=== PATIENT | female | born 1985 | race Caucasian/White ===

== ENCOUNTER 2017-10-02 11:29 | Emergency (ER) | payer BC, MEDICAID ==
[2017-10-02 12:08] VITALS: BP 140/96
--- NOTE | 2017-10-02 12:31 | UC ---
FLU HPI - HPI Summary HPI Summary: Pt presents with a 5 day history of sinus congestion/pain/pressure, b/l earache , generalized body aches, and dry cough. She has been taking tylenol OTC and an OTC cold and flu medication with mild relief. She has felt warm, but denies fever. Denies SOB, chest pain, abdominal pain, N/V/d/C - History of Current Complaint Chief Complaint: UCRespiratory Stated Complaint: RESP COMPLAINT Time Seen by Provider: 10/02/17 12:30 Hx Obtained From: Patient Hx Last Menstrual Period: mirena ?: No Onset/Duration: Gradual Onset Severity Currently: Mild Severity Initially: Moderate Pain Intensity: 5 Pain Scale Used: 0-10 Numeric - Allergy/Home Medications Allergies/Adverse Reactions: Allergies Allergy/AdvReac Type Severity Reaction Status Date / Time Iohexol [From Omnipaque] Allergy Shortness Verified 10/02/17 12:08 of Breath Magnesium Sulfate AdvReac Severe Nausea And Verified 10/02/17 12:08 Vomiting Home Medications: Home Medications Lisinopril/HCTZ 07/29.5(NF) [Zestoretic 07/29.5(NF)] 1 tab PO DAILY 10/02/17 [ History Confirmed 10/02/17] PMH/Surg Hx/FS Hx/Imm Hx Previously Healthy: Yes Cardiovascular History: Hypertension - Surgical History Surgical History: Yes Surgery Procedure, Year, and Place: [address] [place] [address], [facility] DILATION AND CURETTAGE, [id number] COLONOSCOPY,Laminectomy - Family History Known Family History: Negative: Cardiac Disease, Hypertension, Diabetes Family History: reviewed and noncontributory - Social History Occupation: Employed Full-time Lives: With Family Alcohol Use: Daily Alcohol Amount: 1-6 beers Substance Use Type: None Smoking Status (MU): Former Smoker Type: Cigarettes Review of Systems Constitutional: Negative Skin: Negative Eyes: Negative ENT: Ear Ache, Nasal Discharge, Sinus Congestion, Sinus Pain/Tenderness Respiratory: Cough Cardiovascular: Negative Gastrointestinal: Negative Neurovascular: Negative Musculoskeletal: Negative Neurological: Negative Psychological: Negative All Other Systems Reviewed And Are Negative: Yes Physical Exam Triage Information Reviewed: Yes Appearance: Well-Appearing, Well-Nourished Vital Signs: Initial Vital Signs Temp 97.8 F 10/02/17 12:04 Pulse 101 10/02/17 12:04 Resp 16 10/02/17 12:04 BP 140/96 10/02/17 12:04 Pulse Ox 100 10/02/17 12:04 Vital Signs Reviewed: Yes Eyes: Positive: Conjunctiva Clear. Negative: Conjunctiva Inflamed, Discharge ENT: Positive: Hearing grossly normal, Pharynx normal, Nasal congestion, Nasal drainage, TMs normal, Sinus tenderness, Uvula midline. Negative: Pharyngeal erythema, TM bulging, TM dull, TM red, Tonsillar swelling, Tonsillar exudate Neck: Positive: Supple, Nontender, No Lymphadenopathy Respiratory: Positive: Chest non-tender, Lungs clear, Normal breath sounds, No respiratory distress, No accessory muscle use Cardiovascular: Positive: RRR, No Murmur, Pulses Normal Abdomen Description: Positive: Nontender, No Organomegaly, Soft. Negative: Distended, Guarding, Hepatomegaly, Splenomegaly Bowel Sounds: Positive: Present Neurological: Positive: Alert Psychological: Positive: Age Appropriate Behavior Skin: Negative: rashes Flu Course/Dx - Course Course Of Treatment: Influenza swab negative. Sinusitis - Amoxicillin for 10 days - Differential Dx/Diagnosis Differential Diagnosis/HQI/PQRI: Other - sinusitis. Influenza. URI. Bronchitis. PNA Provider Diagnoses: Sinusitis Discharge - Discharge Plan Condition: Stable Disposition: HOME Prescriptions: Amoxicillin PO (*) [Amoxicillin 500 MG CAP*] 500 mg PO Q12H #20 cap Fluconazole 100 MG TAB* [Diflucan 100 MG TAB*] 100 mg PO DAILY #1 tab Patient Education Materials: Sinusitis (ED) Referrals: Duc OLSON,Serge Chow [Primary Care Provider] - Additional Instructions: If you develop a fever, SOB, chest pain, new or worsening symptoms - please call your PCP or go to the ED. Your blood pressure was high at todays visit. Please see your primary provider within 4 weeks for recheck and re-evaluation.
== END 2017-10-02 13:04 | disposition home or self-care (01) ==
LOC: UCEAST 11:29
DX: J32.9 Chronic sinusitis, unspecified (principal)
CPT/HCPCS: 87502; 99212; G0463

== ENCOUNTER 2018-04-18 13:24 | Emergency (ER) | payer BC, MEDICAID ==
[2018-04-18] MEDS ORDERED: Promethazine TAB* 25 MG PO ONE (13:43)
[2018-04-18 14:07] VITALS: BP 147/75
--- NOTE | 2018-04-18 17:30 | ED ---
Tong Turpin Tenzin, scribed for Juan Shore MD on 04/18/18 at 1344 . Head Injury - HPI Summary HPI Summary: Pt is a 32 years old female presenting to the ED complaining of head and back pain after an head injury two days ago at 1000. Per triage, pt rates the pain at 7/10 in severity. Pt notes that she tipped off of a boat chair and hit the back of her head on the corner of the boat. Pt reports that she had some vision changes, dizziness and nauseous since the onset and seems to be getting worse. Denies fever, V/D. Pt notes that she feels as right eye ball will pop out of my face. She drove here and she notes that she felt like she was drunk driving. Pt reports that she took some ibuprofen for the pain without much help. No aggravating factors were noted. - History Of Current Complaint Chief Complaint: EDHeadInjury Stated Complaint: HEAD INJURY,DIZZINESS,NAUSEA Time Seen by Provider: 04/18/18 13:35 Hx Obtained From: Patient Hx Last Menstrual Period: mirena Onset/Duration: Started Days Ago - 2 days ago Severity Currently: Moderate Pain Intensity: 7 Pain Scale Used: 0-10 Numeric Associated Signs And Symptoms: Negative - NEGATIVE: Fever, V/D, Nausea, Headache - Allergies/Home Medications Allergies/Adverse Reactions: Allergies Allergy/AdvReac Type Severity Reaction Status Date / Time iohexol Allergy Shortness Verified 04/18/18 13:32 of Breath magnesium sulfate Allergy Nausea And Verified 04/18/18 13:32 Vomiting PMH/Surg Hx/FS Hx/Imm Hx Endocrine/Hematology History: Reports: Hx Diabetes - gestational in past Denies: Hx Thyroid Disease Cardiovascular History: Reports: Hx Hypertension Denies: Hx Pacemaker/ICD Respiratory History: Reports: Hx Asthma Denies: Hx Chronic Obstructive Pulmonary Disease (COPD) GI History: Denies: Hx Ulcer History: Denies: Hx Dialysis, Hx Renal Disease Sensory History: Denies: Hx Contacts or Glasses, Hx Hearing Aid Opthamlomology History: Denies: Hx Contacts or Glasses Psychiatric History: Denies: Hx Panic Disorder - Cancer History Hx Chemotherapy: No Hx Radiation Therapy: No - Surgical History Surgery Procedure, Year, and Place: 2000 [facility] DILATION AND CURETTAGE, [id number] COLONOSCOPY,Laminectomy Hx Anesthesia Reactions: Yes - DURING LABOR, PROBLEMS WITH EPIDURAL-DROP IN BP, HR Infectious Disease History: No Infectious Disease History: Denies: Hx Hepatitis, Hx Human Immunodeficiency Virus (HIV), History Other Infectious Disease, Traveled Outside the [place] in Last 30 Days - Family History Known Family History: Negative: Cardiac Disease, Hypertension, Diabetes Family History: reviewed and noncontributory - Social History Alcohol Use: Daily Alcohol Amount: 1-6 beers Substance Use Type: Reports: None Smoking Status (MU): Former Smoker Type: Cigarettes Review of Systems Negative: Fever Positive: Other - NEGATIVE: right eye "feels as if it is going to pop out of her face". Positive: Nausea. Negative: Vomiting, Diarrhea Positive: Other - Back pain. Neurological: Other - POSITIVE DIZZINESS Positive: Headache All Other Systems Reviewed And Are Negative: Yes Physical Exam - Summary Physical Exam Summary: Appearance: Well appearing, no pain distress Skin: warm, dry, reflects adequate perfusion Head/face: normal Eyes: EOMI, MARILEE, no Hematoma, diaz or raccoon eyes ENT: normal Neck: supple, non-tender Respiratory: CTA, breath sounds present Cardiovascular: RRR, pulses symmetrical Abdomen: non-tender, soft Bowel Sounds: present Musculoskeletal: normal, strength/ROM intact, Occiput tenderness but no redness or swelling. Neuro: normal, sensory motor intact, A&Ox3 Triage Information Reviewed: Yes Vital Signs On Initial Exam: Initial Vitals Temp Pulse Resp BP Pulse Ox 97.9 F 91 15 144/87 98 04/18/18 13:30 04/18/18 13:30 04/18/18 13:30 04/18/18 13:30 04/18/18 13:30 Vital Signs Reviewed: Yes Diagnostics - Vital Signs Vital Signs Temp Pulse Resp BP Pulse Ox 04/18/18 13:37 83 97 04/18/18 13:35 79 154/109 97 04/18/18 13:30 97.9 F 91 15 144/87 98 - Laboratory Lab Statement: Any lab studies that have been ordered have been reviewed, and results considered in the medical decision making process. Head Injury Course/Dx Course Of Treatment: Patient with occipital injury several days ago with residual symptoms that are likely concussive. Appears comfortable at present. Some muscular tenderness in the area of the insertion of the trapezius on the right. Full range of motion the neck without pain. Treat symptomatically for concussion. Follow up primary care physician. Illogically intact. - Diagnoses Differential Diagnosis/HQI/PQRI: Cervical Sprain, Concussion Without LOC, Intracranial Bleed Provider Diagnoses: Concussion Discharge - Sign-Out/Discharge Documenting (check all that apply): Discharge/Admit/Transfer - Discharge - Discharge Plan Condition: Improved Disposition: HOME Prescriptions: Cyclobenzaprine (NF) [Cyclobenzaprine 5 MG (NF)] 5 mg PO BEDTIME PRN #5 tab PRN Reason: neck pain, muscle aches Promethazine TAB* [Phenergan Tab*] 25 mg PO Q6H PRN #20 tab PRN Reason: headache, nausea Patient Education Materials: Concussion (ED) Referrals: Duc OLSON,Serge Chow [Primary Care Provider] - Additional Instructions: Return with severe/persistent headache, nausea, worsening, difficulty with balance, new symptoms or other concerns. Avoid physical activities for 1 week following the last day of symptoms. - Billing Disposition and Condition Condition: IMPROVED Disposition: Home The documentation as recorded by the Tong lee Tenzin accurately reflects the service I personally performed and the decisions made by , Juan Shore MD.
== END 2018-04-18 14:06 | disposition home or self-care (01) ==
LOC: ED 13:24
DX: S06.0X9A Concussion with loss of consciousness of unspecified duration, initial encounter (principal); R11.0 Nausea; M54.9 Dorsalgia, unspecified; Z87.891 Personal history of nicotine dependence; R51 Headache; X58.XXXA Exposure to other specified factors, initial encounter; Y92.9 Unspecified place or not applicable
CPT/HCPCS: 99282

== ENCOUNTER 2018-06-08 09:29 | Emergency (ER) | payer BC, MEDICAID ==
[2018-06-08 09:45] VITALS: BP 150/105
--- NOTE | 2018-06-08 10:00 | UC ---
Head Injury HPI - HPI Summary HPI Summary: A 32 y/o F presents to [facility] with c/o approximately weekly severe frontal DOTSON behind her R eye onset over the past two months. She states waking up with the pain. Two months ago, the patient fell and hit her head, she went to ED, dx: concussion. Associated sx: severe nausea. She was at work today, and they sent her home because she appeared ill. Her PCP could not fit her in today. Pt sees Dr. Wallace for chronic neck pain. She has UE numbness but it hasnt worsened since the concussion. PMHx: HTN. Has not taken her HTN meds today. - History Of Current Complaint Chief Complaint: UCHeadInjury Stated Complaint: HEADACHE NAUSEA Time Seen by Provider: 06/08/18 09:47 Hx Obtained From: Patient Hx Last Menstrual Period: iud Onset/Duration: Lasting Weeks - intermittent weekly episodes for past two months , Still Present Severity Currently: Moderate Severity Initially: Moderate Pain Intensity: 7 Pain Scale Used: 0-10 Numeric Associated Signs And Symptoms: Positive: Nausea - severe, Other - neg: UE numbness other than baseline - Allergies/Home Medications Allergies/Adverse Reactions: Allergies Allergy/AdvReac Type Severity Reaction Status Date / Time iohexol Allergy Shortness Verified 06/08/18 09:45 of Breath magnesium sulfate Allergy Nausea And Verified 06/08/18 09:45 Vomiting PMH/Surg Hx/FS Hx/Imm Hx Previously Healthy: No - neck pain Cardiovascular History: Hypertension - Surgical History Surgical History: Yes Surgery Procedure, Year, and Place: [facility] DILATION AND CURETTAGE, [id number] COLONOSCOPY,Laminectomy - Family History Known Family History: Negative: Cardiac Disease, Hypertension, Diabetes - Social History Occupation: Employed Part-time Lives: With Family Alcohol Use: Occasionally Alcohol Amount: 1-6 beers Substance Use Type: None Smoking Status (MU): Former Smoker Type: Cigarettes Review of Systems Gastrointestinal: Nausea - severe Neurological: Headache All Other Systems Reviewed And Are Negative: Yes Physical Exam - Summary Physical Exam Summary: VITAL SIGNS: Reviewed. GENERAL: Patient is a well-developed and nourished FEMALE who is lying comfortable in the stretcher. Patient is not in any acute respiratory distress. HEAD AND FACE: Normocephalic EYES: PERRLA, EOMI x 2. EARS: Hearing grossly intact. MOUTH: Oropharynx within normal limits. NECK: Supple, trachea is midline, no adenopathy, no JVD, no carotid bruit. CHEST: Symmetric, no tenderness at palpation LUNGS: Clear to auscultation bilaterally. No wheezing or crackles. CVS: Regular rate and rhythm, S1 and S2 present, no murmurs or gallops appreciated. ABDOMEN: Soft, non-tender. Bowel sounds are normal. No abdominal abnormal pulsations. EXTREMITIES: Full ROM in all major joints, no edema, no cyanosis or clubbing. NEURO: Alert and oriented x 3. No acute neurological deficits. Speech is normal and follows commands. SKIN: Dry and warm Triage Information Reviewed: Yes Vital Signs: Initial Vital Signs Temp 98 F 06/08/18 09:39 Pulse 76 06/08/18 09:39 Resp 16 06/08/18 09:39 BP 150/105 06/08/18 09:39 Pulse Ox 100 06/08/18 09:39 Vital Signs Reviewed: Yes Head Injury Course/Dx - Course Course Of Treatment: The patient was found to have increased BP in UC. The patient will follow up with PCP for better control of BP. Patient is a 32-year- old female presents to the urgent care with chief complaint of having a headache of similar nausea and vomiting. The patient had a history of head concussion but also has history of hypertension. Blood pressure is 150/105 therefore believe that the symptoms are secondary to the uncontrolled blood pressure. Patient was taking lisinopril/hydrochlorothiazide 20/12.5 however the primary care physician decreased to 10/12.5. Therefore I recommended to increase the blood pressure medications 20/12.5. Patient and does not want to return to see her PCP, therefore she will be referred [facility] [place] [facility] follow[place] in the next couple days. Patient has a normal neurological exam, she is ambulating with normal gait without any ataxia therefore do not see the need for head CT. However the symptoms continue she should return to the urgent care or go to the emergency room for possible head CT. Patient is hemolyticus stable alert and oriented 3. I discussed all the findings and test results with the patient. Patient was instructed to return to the urgent care or go to ER immediately if any of the symptoms return or worsens. Plan of care was discussed with the patient, and patient understands and agrees. All questions were answered to patient satisfaction. There were no further complaints or concerns. Pt is hemodynamically stable, alert and oriented x3. - Differential Dx/Diagnosis Provider Diagnoses: Uncontrol HTN Discharge - Sign-Out/Discharge Documenting (check all that apply): Patient Departure - DC All imaging exams completed and their final reports reviewed: No Studies - Discharge Plan Condition: Stable Disposition: HOME Prescriptions: Lisinopril/HCTZ 20/12.5(NF) [Zestoretic 20/12.5(NF)] 1 tab PO DAILY #30 tab Patient Education Materials: Hypertension (ED) Forms: *Work Release Referrals: [facility] [Outside] Duc OLSON,Serge Chow [Primary Care Provider] - Additional Instructions: FOLLOW UP WITH YOUR PRIMARY CARE PROVIDER WITHIN ONE WEEK FOR HIGH BLOOD PRESSURE NOTED TODAY. - Billing Disposition and Condition Condition: STABLE Disposition: Home - Attestation Statements Document Initiated by Scribe: Yes Documenting Scribe: Rayshawn Metz Provider For Whom Scribe is Documenting (Include Credential): Lucien Goins MD Scribe Attestation: I, Rayshawn Metz, scribed for Lucien Goins MD on 06/08/18 at 1042. Scribe Documentation Reviewed: Yes Provider Attestation: The documentation as recorded by the Rayshawn lee accurately reflects the service I personally performed and the decisions made by , Lucien Goins MD
== END 2018-06-08 10:14 | disposition home or self-care (01) ==
LOC: UCEAST 09:29
DX: I10 Essential (primary) hypertension (principal); Z88.8 Allergy status to other drugs, medicaments and biological substances; Z87.891 Personal history of nicotine dependence; R51 Headache; R11.0 Nausea; M54.2 Cervicalgia; G89.29 Other chronic pain; R20.0 Anesthesia of skin
CPT/HCPCS: 99212; G0463

== ENCOUNTER 2018-10-20 14:29 | Emergency (ER) | payer BC, MEDICAID ==
[2018-10-20 14:54] VITALS: BP 153/102
--- NOTE | 2018-10-20 14:59 | UC ---
Throat Pain/Nasal Kj HPI - HPI Summary HPI Summary: 33 yo female presents with sinus pain/pressure/congestion, chest congestion, and dry cough for the last 5 days. She has not been taking anything OTC. Has felt warm/cold, but has not taken her temperature. Denies SOB, chest pain, abdominal pain, n/v - History of Current Complaint Chief Complaint: UCRespiratory Stated Complaint: COUGH,CHEST CONGESTION Time Seen by Provider: 10/20/18 14:59 Hx Obtained From: Patient Hx Last Menstrual Period: 7 years Onset/Duration: Gradual Onset Severity: Moderate Pain Intensity: 6 Pain Scale Used: 0-10 Numeric - Allergies/Home Medications Allergies/Adverse Reactions: Allergies Allergy/AdvReac Type Severity Reaction Status Date / Time Iodinated Contrast- Oral and Allergy Anaphylatic Verified 10/20/18 14:54 IV Dye Shock iohexol Allergy Shortness Verified 10/20/18 14:54 of Breath magnesium sulfate Allergy Nausea And Verified 10/20/18 14:54 Vomiting Home Medications: Home Medications Amitriptyline TAB* [Elavil TAB*] 1 tab PO BEDTIME 10/20/18 [History Confirmed ] Hydrochlorothiazide TAB* [Hydrodiuril TAB*] 25 mg PO DAILY 10/20/18 [History Confirmed 10/20/18] PMH/Surg Hx/FS Hx/Imm Hx Cardiovascular History: Hypertension - Surgical History Surgical History: Yes Surgery Procedure, Year, and Place: 2000 [facility], [facility]; 2006 [place] [facility]; Laminectomy. [facility] [place] [place] - Family History Known Family History: Negative: Cardiac Disease, Hypertension, Diabetes - Social History Occupation: Employed Full-time Lives: With Family Alcohol Use: Occasionally Alcohol Amount: 1-6 beers Substance Use Type: None Smoking Status (MU): Former Smoker Type: Cigarettes Review of Systems All Other Systems Reviewed And Are Negative: Yes Constitutional: Positive: Fatigue Skin: Positive: Negative Eyes: Positive: Negative ENT: Positive: Nasal Discharge, Sinus Congestion, Sinus Pain/Tenderness Respiratory: Positive: Cough Cardiovascular: Positive: Negative Gastrointestinal: Positive: Negative Neurovascular: Positive: Negative Psychological: Positive: Negative Physical Exam - Summary Physical Exam Summary: GENERAL: NAD. WDWN. No pain distress. SKIN: No rashes, sores, lesions, or open wounds. HEENT: Head: AT/NC Eyes: EOM intact. Conjunctiva clear without inflammation or discharge. Ears: Hearing grossly normal. TMs intact, no bulging, erythema, or edema. Nose: Nasal mucosa mildly swollen and erythematous with yellow/ green discharge. TTP maxillary and frontal sinus. Positive post nasal drip Throat: Posterior oropharynx without exudates, erythema, or tonsillar enlargement. Uvula midline. NECK: Supple. Nontender. No lymphadenopathy. CHEST: CTAB. No r/r/w. No accessory muscle use. Breathing comfortably and in no distress. CV: RRR. Without m/r/g. Pulses intact. NEURO: Alert. PSYCH: Age appropriate behavior. Triage Information Reviewed: Yes Vital Signs: Initial Vital Signs Temp 98.1 F 10/20/18 14:50 Pulse 90 10/20/18 14:50 Resp 15 10/20/18 14:50 BP 153/102 10/20/18 14:50 Pulse Ox 100 10/20/18 14:50 Vital Signs Reviewed: Yes Throat Pain/Nasal Course/Dx - Course Course Of Treatment: Sinusitis - Differential Dx/Diagnosis Provider Diagnosis: Sinusitis Discharge - Sign-Out/Discharge Documenting (check all that apply): Patient Departure All imaging exams completed and their final reports reviewed: No Studies - Discharge Plan Condition: Stable Disposition: HOME Prescriptions: Amoxicillin PO (*) [Amoxicillin 875 MG (*)] 875 mg PO BID #14 tab Fluconazole 150 MG TAB* [Diflucan 150 MG TAB*] 150 mg PO ONCE #1 tablet Patient Education Materials: Sinusitis (ED) Forms: *Work Release Referrals: Juanita Montalvo DO [Primary Care Provider] - Additional Instructions: If you develop a fever, shortness of breath, chest pain, new or worsening symptoms - please call your PCP or go to the ED. Your blood pressure was high at todays visit. Please see your primary provider within 4 weeks for recheck and re-evaluation. Please also take Mucinex and Flonase over the counter to help your symptoms - Billing Disposition and Condition Condition: STABLE Disposition: Home
== END 2018-10-20 16:58 | disposition home or self-care (01) ==
LOC: UCEAST 14:29
DX: J32.9 Chronic sinusitis, unspecified (principal); Z88.8 Allergy status to other drugs, medicaments and biological substances; Z91.041 Radiographic dye allergy status
CPT/HCPCS: 99212; G0463

== ENCOUNTER 2019-04-04 09:35 | Emergency (ER) | payer BC ==
[2019-04-04] MEDS ORDERED: Nitroglycerin TAB 0.4 MG* 0.4 MG TAB SL ONE (09:52)
[2019-04-04] MEDS ORDERED: NS 0.9% 1000 ML** 1,000 ML IV ONE (09:53)
[2019-04-04 10:03] LABS: ABS Eosinophils 0.2 10^3/ul (0-0.6); ABS Lymphocytes 2.2 10^3/ul (1.0-4.8); ABS Monocytes 0.6 10^3/ul (0-0.8); ABS Neutrophils 4.8 10^3/ul (1.5-7.7); Eosinophil % 2.2 %; Hematocrit 44 % (35-47); Hemoglobin 15.2 g/dL (12.0-16.0); Lymphocyte % 28.1 %; Mean Corpuscular HGB Conc 34 g/dL (31-36); Mean Corpuscular Hemoglobin 33 pg (27-31); Mean Corpuscular Volume 97 fL (80-97); Mean Platelet Volume 9.2 fL (7.4-10.4); Nucleated Red Blood Cells % 0.1; Platelet Count 265 10^3/uL (150-450); Red Blood Count 4.57 10^6 /uL (3.70-4.87); Red Cell Distribution Width 13 % (10-15); White Blood Count 7.7 10^3/uL (3.5-10.8)
[2019-04-04 10:06] LABS: INR 0.98 (0.82-1.09)
[2019-04-04 10:17] LABS: Urine Appearance Clear; Urine Bilirubin Negative (Negative); Urine Blood Negative (Negative); Urine Color Straw; Urine Glucose Negative (Negative); Urine Ketones Negative (Negative); Urine Nitrite Negative (Negative); Urine Protein Negative (Negative); Urine Specific Gravity 1.004 (1.010-1.030); Urine Urobilinogen Negative (Negative)
[2019-04-04 10:26] LABS: Albumin 4.7 g/dL (3.2-5.2); Albumin/Globulin Ratio 1.6 (1-3); BUN/Creatinine Ratio 17.1 (8-20); Calcium 10.1 mg/dL (8.6-10.3); EGFR Non-African American 79.3 (>60); Total Bilirubin 0.4 mg/dL (0.2-1.0); Total Protein 7.7 g/dL (6.4-8.9)
[2019-04-04] MEDS ORDERED: Famotidine IV* 10 MG/ML 2 ML (20 mg) IV SLOW PU ONE (10:55)
[2019-04-04] MEDS ORDERED: Ketorolac INJ* 30 MG/ML 1 ML VIAL IV PUSH ONE (10:55)
--- NOTE | 2019-04-04 11:15 | ED ---
HPI Chest Pain - HPI Summary HPI Summary: PATIENT'S a 33-year-old female with history of hypertension presenting to the ED with midsternal chest pain which is nonradiating. She states this woke her up at 4:30 this morning. Denies eating anything abnormal and denies history of GERD. This began approximately 2 days ago, has remained intermittent and has been worse this morning. She rates her pain currently A/10. She endorses a sharp pain to this area. Denies any shortness of breath. Denies any headaches , visual changes or other symptoms. She states "something is wrong." She is currently seeing Dr. Real as well as Dr. Montalvo. She has never had anything like this before. She states despite taking hydrochlorothiazide and metoprolol , she continues to have hypertension. She has had full workups as an outpatient with normal findings. She denies any leg swelling, denies smoking history and denies the use of OCPs. - History of Current Complaint Chief Complaint: EDChestPainROMI Time Seen by Provider: 04/04/19 09:46 Hx Obtained From: Patient Hx Last Menstrual Period: 7 years Onset/Duration: Started Hours Ago Timing: Constant Pain Intensity: 2 Pain Scale Used: 0-10 Numeric Chest Pain Location: Mid Sternal Chest Pain Radiates: No Character: Sharp/Stabbing Aggravating Factor(s): Nothing Alleviating Factor(s): Nothing Associated Signs and Symptoms: Positive: Negative - Risk Factors Pulmonary Embolism Risk Factors: Negative TAD Risk Factors: Hypertension AMI/ACS Risk Factors: Hypertension - Allergy/Home Medications Allergies/Adverse Reactions: Allergies Allergy/AdvReac Type Severity Reaction Status Date / Time Iodinated Contrast- Oral and Allergy Anaphylatic Verified 04/04/19 09:42 IV Dye Shock iohexol Allergy Shortness Verified 04/04/19 09:42 of Breath magnesium sulfate Allergy Nausea And Verified 04/04/19 09:42 Vomiting Home Medications: Home Medications Hydrochlorothiazide TAB* [Hydrodiuril TAB*] 12.5 mg PO DAILY 04/04/19 [History Confirmed 04/04/19] Metoprolol Succinate XL TAB* [Toprol XL TAB*] 12.5 mg PO DAILY 04/04/19 [ History Confirmed 04/04/19] PMH/Surg Hx/FS Hx/Imm Hx Previously Healthy: Yes Endocrine/Hematology History: Denies: Hx Diabetes - gestational in past, Hx Thyroid Disease Cardiovascular History: Reports: Hx Hypertension - on meds Denies: Hx Pacemaker/ICD Respiratory History: Reports: Hx Asthma Denies: Hx Chronic Obstructive Pulmonary Disease (COPD) GI History: Denies: Hx Ulcer History: Denies: Hx Dialysis, Hx Renal Disease Sensory History: Denies: Hx Contacts or Glasses, Hx Hearing Aid Opthamlomology History: Denies: Hx Contacts or Glasses Psychiatric History: Denies: Hx Panic Disorder - Cancer History Hx Chemotherapy: No Hx Radiation Therapy: No - Surgical History Surgery Procedure, Year, and Place: 2000 CSECTION, [facility]; 2006 DILATION AND CURETTAGE, [facility] [place] 2010 COLONOSCOPY; Laminectomy. CSP SURGERY-BULGING DISC -[facility] [place] 2012 Hx Anesthesia Reactions: Yes - DURING LABOR, PROBLEMS WITH EPIDURAL-DROP IN BP, HR - Immunization History Hx Pertussis Vaccination: No Immunizations Up to Date: Yes Infectious Disease History: No Infectious Disease History: Denies: Hx Hepatitis, Hx Human Immunodeficiency Virus (HIV), History Other Infectious Disease, Traveled Outside the [place] in Last 30 Days - Family History Known Family History: Negative: Cardiac Disease, Hypertension, Diabetes - Social History Occupation: Employed Full-time Lives: With Family Alcohol Use: Occasionally Alcohol Amount: 1-6 beers Hx Substance Use: No Substance Use Type: Reports: None Smoking Status (MU): Former Smoker Type: Cigarettes Review of Systems Constitutional: Negative Negative: Fever, Chills, Fatigue, Skin Diaphoresis Negative: Palpitations, Chest Pain Negative: Shortness Of Breath, Cough Genitourinary: Negative Positive: no symptoms reported, see HPI Negative: Arthralgia, Myalgia Skin: Negative Neurological: Negative All Other Systems Reviewed And Are Negative: Yes Physical Exam Triage Information Reviewed: Yes Vital Signs On Initial Exam: Initial Vitals Temp Pulse Resp BP Pulse Ox 98.2 F 92 16 160/124 97 04/04/19 09:38 04/04/19 09:38 04/04/19 09:38 04/04/19 09:38 04/04/19 09:38 Vital Signs Reviewed: Yes Appearance: Positive: Well-Appearing, Well-Nourished Skin: Positive: Warm, Skin Color Reflects Adequate Perfusion Head/Face: Positive: Normal Head/Face Inspection Eyes: Positive: EOMI, Conjunctiva Clear Neck: Positive: Supple, No Lymphadenopathy Respiratory/Lung Sounds: Positive: Clear to Auscultation, Breath Sounds Present Cardiovascular: Positive: RRR, Pulses are Symmetrical in both Upper and Lower Extremities Neurological: Positive: Sensory/Motor Intact, Alert, Oriented to Person Place, Time, Speech Normal Psychiatric: Positive: Normal, Affect/Mood Appropriate AVPU Assessment: Alert Diagnostics - Vital Signs Vital Signs Temp Pulse Resp BP Pulse Ox 04/04/19 10:03 110 95 04/04/19 09:58 90 15 179/115 98 04/04/19 09:55 76 99 04/04/19 09:38 98.2 F 92 16 160/124 97 - Laboratory Lab Results: Lab Results 04/04/19 04/04/19 04/04/19 Range/Units 09:53 09:53 09:53 WBC 7.7 (3.5-10.8) 10^3/uL RBC 4.57 (3.70-4.87) 10^6 /uL Hgb 15.2 (12.0-16.0) g/dL Hct 44 (35-47) % MCV 97 (80-97) fL MCH 33 H (27-31) pg MCHC 34 (31-36) g/dL RDW 13 (10-15) % Plt Count 265 (150-450) 10^3/uL MPV 9.2 (7.4-10.4) fL Neut % (Auto) 61.7 % Lymph % (Auto) 28.1 % [place] % (Auto) 7.4 % Eos % (Auto) 2.2 % Baso % (Auto) 0.6 % Absolute Neuts (auto) 4.8 (1.5-7.7) 10^3/ul Absolute Lymphs (auto) 2.2 (1.0-4.8) 10^3/ul Absolute Monos (auto) 0.6 (0-0.8) 10^3/ul Absolute Eos (auto) 0.2 (0-0.6) 10^3/ul Absolute Basos (auto) 0.0 (0-0.2) 10^3/ul Absolute Nucleated RBC 0.0 10^3/ul Nucleated RBC % 0.1 INR (Anticoag Therapy) 0.98 (0.82-1.09) Sodium 138 (135-145) mmol/L Potassium 4.0 (3.5-5.0) mmol/L Chloride 103 (101-111) mmol/L Carbon Dioxide 27 (22-32) mmol/L Anion Gap 8 (2-11) mmol/L BUN 14 (6-24) mg/dL Creatinine 0.82 (0.51-0.95) mg/dL Est GFR ( Amer) 96.0 (>60) Est GFR (Non-Af Amer) 79.3 (>60) BUN/Creatinine Ratio 17.1 (8-20) Glucose 108 H (70-100) mg/dL Calcium 10.1 (8.6-10.3) mg/dL Total Bilirubin 0.40 (0.2-1.0) mg/dL AST 21 (13-39) U/L ALT 21 (7-52) U/L Alkaline Phosphatase 66 (34-104) U/L Troponin I 0.00 (<0.04) ng/mL Total Protein 7.7 (6.4-8.9) g/dL Albumin 4.7 (3.2-5.2) g/dL Globulin 3.0 (2-4) g/dL Albumin/Globulin Ratio 1.6 (1-3) Urine Color Urine Appearance Urine pH (5-9) Ur Specific [place] (1.010-1.030) Urine Protein (Negative) Urine Ketones (Negative) Urine Blood (Negative) Urine Nitrate (Negative) Urine Bilirubin (Negative) Urine Urobilinogen (Negative) Ur Leukocyte Esterase (Negative) Urine Glucose (Negative) 04/04/19 Range/Units 10:07 WBC (3.5-10.8) 10^3/uL RBC (3.70-4.87) 10^6 /uL Hgb (12.0-16.0) g/dL Hct (35-47) % MCV (80-97) fL MCH (27-31) pg MCHC (31-36) g/dL RDW (10-15) % Plt Count (150-450) 10^3/uL MPV (7.4-10.4) fL Neut % (Auto) % Lymph % (Auto) % [place]ud[place] % (Auto) % Eos % (Auto) % Baso % (Auto) % Absolute Neuts (auto) (1.5-7.7) 10^3/ul Absolute Lymphs (auto) (1.0-4.8) 10^3/ul Absolute Monos (auto) (0-0.8) 10^3/ul Absolute Eos (auto) (0-0.6) 10^3/ul Absolute Basos (auto) (0-0.2) 10^3/ul Absolute Nucleated RBC 10^3/ul Nucleated RBC % INR (Anticoag Therapy) (0.82-1.09) Sodium (135-145) mmol/L Potassium (3.5-5.0) mmol/L Chloride (101-111) mmol/L Carbon Dioxide (22-32) mmol/L Anion Gap (2-11) mmol/L BUN (6-24) mg/dL Creatinine (0.51-0.95) mg/dL Est GFR ( Amer) (>60) Est GFR (Non-Af Amer) (>60) BUN/Creatinine Ratio (8-20) Glucose (70-100) mg/dL Calcium (8.6-10.3) mg/dL Total Bilirubin (0.2-1.0) mg/dL AST (13-39) U/L ALT (7-52) U/L Alkaline Phosphatase (34-104) U/L Troponin I (<0.04) ng/mL Total Protein (6.4-8.9) g/dL Albumin (3.2-5.2) g/dL Globulin (2-4) g/dL Albumin/Globulin Ratio (1-3) Urine Color Straw Urine Appearance Clear Urine pH 6.0 (5-9) Ur Specific [place] 1.004 L (1.010-1.030) Urine Protein Negative (Negative) Urine Ketones Negative (Negative) Urine Blood Negative (Negative) Urine Nitrate Negative (Negative) Urine Bilirubin Negative (Negative) Urine Urobilinogen Negative (Negative) Ur Leukocyte Esterase Negative (Negative) Urine Glucose Negative (Negative) Result Diagrams: 04/04/19 09:53 04/04/19 09:53 Lab Statement: Any lab studies that have been ordered have been reviewed, and results considered in the medical decision making process. Chest Pain Course/Dx - Course Course Of Treatment: Patient is evaluated for midsternal chest pain which is nonradiating. Denies any shortness of breath, fevers, sweats, chills. She endorses pain as stabbing. On physical examination, lungs CTA, RRR. No pain on deep palpation of the epigastric region or chest wall. Patient is nondiaphoretic and nontoxic appearing. She endorses her pain at 8/10 but appears comfortable on exam. She is given nitroglycerin on arrival due to chest pain and blood pressure elevated at 160/124. She did not take her medications this morning. She denies any improvement with her symptoms 20 minutes status post nitroglycerin. She appears anxious and she is subsequently given Ativan. This with good improvement. She was also given famotidine for epigastric pain as well as Toradol for any pleuritic pain or other inflammation. Labs obtained which are WNL including a troponin of 0.00. After Ativan and famotidine given, this with good effect. Patient denies any symptoms currently. She states she feels fatigued, this is likely due to the Ativan. A repeat troponin is 0.00. Patient remained asymptomatic at this time and will be discharged home with angina and anxiety. Discussed with the patient strict return precautions and follow-up with cardiology and PCP. Also discussed with patient we are unsure the etiology of her pain and is given prescriptions for omeprazole per patient request for possible GERD-like symptoms as well as 2 day supply of Ativan for anxiety. BP decreased to 155/95 on repeat exam. - Chest Pain Differential Diagnosis/HQI/PQRI: Angina, Chest Wall, Other: - angina, anxiety, gerd, gas - Diagnoses Provider Diagnoses: Angina at rest, Anxiety Discharge - Sign-Out/Discharge Documenting (check all that apply): Patient Departure Patient Received Moderate/Deep Sedation with Procedure: No - Discharge Plan Condition: Stable Disposition: HOME Prescriptions: LORazepam TAB(*) [Ativan 1 MG TAB (*)] 1 mg PO Q8H PRN #9 tab MDD 3 PRN Reason: Anxiety Omeprazole CAP (NF) [Prilosec CAP* 20 MG] 20 mg PO DAILY #30 Patient Education Materials: Angina (DC), Anxiety (ED) Referrals: Juanita Montalvo DO [Primary Care Provider] - Additional Instructions: Please follow up with Dr. Montalvo [id number] Gas-X as needed as discussed, may use if this improves her symptoms Omeprazole once daily 30 days Ativan up to 3 times daily as needed for any anxiety symptoms If you develop any worsening chest pain or other symptoms, return to the ED Ibuprofen 600mg three times daily as needed for generalized discomfort Do not drive while taking ativan - Billing Disposition and Condition Condition: STABLE Disposition: Home
[2019-04-04] MEDS ORDERED: Lorazepam PYXIS KEY PRN (11:45)
[2019-04-04] MEDS ORDERED: LORazepam INJ* 2 MG/ML 1 ML VIAL IV PUSH ONE (11:45)
[2019-04-04] MEDS ORDERED: Simethicone TAB* 80 MG TAB.CHEW PO ONE (11:46)
[2019-04-04] MEDS ORDERED: Lorazepam PYXIS KEY ONE (12:28)
[2019-04-04 13:45] VITALS: BP 155/101
== END 2019-04-04 13:36 | disposition home or self-care (01) ==
LOC: ED 09:35
DX: I20.9 Angina pectoris, unspecified (principal); F41.9 Anxiety disorder, unspecified; I10 Essential (primary) hypertension; Z79.899 Other long term (current) drug therapy; Z87.891 Personal history of nicotine dependence
CPT/HCPCS: 36415; 71046; 80053; 81003; 84484; 85025; 85610; 93005; 96361; 96374; 96375; 99283; A9270-GY; J1885; J2060

== ENCOUNTER 2019-07-21 10:41 | Emergency (ER) | payer BC ==
[2019-07-21] MEDS ORDERED: Labetalol IV* 5 MG/ML 20 ML VIAL IV PUSH ONE (10:59)
--- NOTE | 2019-07-21 11:03 | ED ---
Hypertension - HPI Summary HPI Summary: This pt is a 33 y/o female, with hx of HTN, presenting to [facility] c/o high blood pressure for the past 3 days. She notes her blood pressure is usually 150/90 or higher at all times but over the past 3 it has significantly increased. Her antihypertensive medications are hydrochlorothiazide and metoprolol, which she takes at 0700 every day. Pt reports last night her blood pressure was 183/123. She states that her blood pressure throughout the night did not go down. Pt c/o SOB, chest pain, left arm pain, left calf pain, right eye pain, headache. Denies swelling in her legs. Her PCP is Dr. Solis. Pt notes she also sees Dr. Blackburn and Dr. Jimenes. Pt has had 2 EEGs in the past and reports they were normal. Denies hx of migraines. Allergic to IV contrast dye. LMP"8 years ago - History of Current Complaint Chief Complaint: EDHypertension Stated Complaint: HIGH BP PER PT Time Seen by Provider: 07/21/19 10:47 Hx Obtained From: Patient Hx Last Menstrual Period: 7 years Onset/Duration: Started Days Ago, Still Present Timing: Lasting Days Aggravating Factor(s): Nothing Alleviating Factor(s): Nothing Associated Signs & Symptoms: Chest Pain, Headaches, SOB, Pain - right eye, left calf and left arm - Allergies/Home Medications Allergies/Adverse Reactions: Allergies Allergy/AdvReac Type Severity Reaction Status Date / Time Iodinated Contrast Media Allergy Anaphylatic Verified 04/04/19 09:42 [Iodinated Contrast- Oral Shock and IV Dye] iohexol Allergy Shortness Verified 04/04/19 09:42 of Breath magnesium sulfate Allergy Nausea And Verified 04/04/19 09:42 Vomiting Home Medications: Home Medications DULoxetine DR CAP* [Cymbalta CAP*] 60 mg PO DAILY 07/21/19 [History Confirmed ] LoraTADine TAB(NF) [Claritin 10 MG TAB(NF)] 10 mg PO DAILY 07/21/19 [History Confirmed 07/21/19] PMH/Surg Hx/FS Hx/Imm Hx Endocrine/Hematology History: Denies: Hx Diabetes - gestational in past, Hx Thyroid Disease Cardiovascular History: Reports: Hx Hypertension - on meds Denies: Hx Pacemaker/ICD Respiratory History: Reports: Hx Asthma Denies: Hx Chronic Obstructive Pulmonary Disease (COPD) GI History: Denies: Hx Ulcer History: Denies: Hx Dialysis, Hx Renal Disease Sensory History: Denies: Hx Contacts or Glasses, Hx Hearing Aid Opthamlomology History: Denies: Hx Contacts or Glasses Psychiatric History: Denies: Hx Panic Disorder - Cancer History Hx Chemotherapy: No Hx Radiation Therapy: No - Surgical History Surgery Procedure, Year, and [facility]; 2006 DILATION AND CURETTAGE, [facility] [place] 2010 COLONOSCOPY; Laminectomy. CSP SURGERY-BULGING DISC -[facility] [place] 2012 Hx Anesthesia Reactions: Yes - DURING LABOR, PROBLEMS WITH EPIDURAL-DROP IN BP, HR Infectious Disease History: No Infectious Disease History: Denies: Hx Hepatitis, Hx Human Immunodeficiency Virus (HIV), History Other Infectious Disease, Traveled Outside the [place] in Last 30 Days - Family History Known Family History: Negative: Cardiac Disease, Hypertension, Diabetes - Social History Alcohol Use: Occasionally Alcohol Amount: 1-6 beers Hx Substance Use: No Substance Use Type: Reports: None Smoking Status (MU): Former Smoker Type: Cigarettes Review of Systems Negative: Fever, Chills Eyes: Other - POSITIVE: right eye pain Positive: Chest Pain Positive: Shortness Of Breath Musculoskeletal: Other - POSITIVE: left arm pain, left calf pain Negative: Edema Positive: Headache All Other Systems Reviewed And Are Negative: Yes Physical Exam - Summary Physical Exam Summary: VITAL SIGNS: Reviewed. GENERAL: Patient is a well-developed and nourished female who is lying comfortable in the stretcher. Patient is not in any acute respiratory distress. HEAD AND FACE: No signs of trauma. No ecchymosis, hematomas or skull depressions. No sinus tenderness. EYES: PERRLA, EOMI x 2, No injected conjunctiva, no nystagmus. EARS: Hearing grossly intact. Ear canals and tympanic membranes are within normal limits. MOUTH: Oropharynx within normal limits. NECK: Supple, trachea is midline, no adenopathy, no JVD, no carotid bruit, no c- spine tenderness, neck with full ROM. CHEST: Symmetric, no tenderness at palpation. LUNGS: Clear to auscultation bilaterally. No wheezing or crackles. CVS: Regular rate and rhythm, S1 and S2 present, no murmurs or gallops appreciated. ABDOMEN: Soft, non-tender. No signs of distention. No rebound, no guarding, and no masses palpated. Bowel sounds are normal. EXTREMITIES: FROM in all major joints, no edema, no cyanosis or clubbing. NEURO: Alert and oriented x 3. No acute neurological deficits. Speech is normal and follows commands. SKIN: Dry and warm. Triage Information Reviewed: Yes Vital Signs On Initial Exam: Initial Vitals Temp Pulse Resp BP Pulse Ox 97.7 F 119 19 183/125 100 07/21/19 10:42 07/21/19 10:42 07/21/19 10:42 07/21/19 10:42 07/21/19 10:42 Vital Signs Reviewed: Yes Procedures - Sedation Patient Received Moderate/Deep Sedation with Procedure: No Diagnostics - Vital Signs Vital Signs Temp Pulse Resp BP Pulse Ox 07/21/19 10:42 97.7 F 119 19 183/125 100 - Laboratory Result Diagrams: 07/21/19 11:10 07/21/19 11:10 Lab Statement: Any lab studies that have been ordered have been reviewed, and results considered in the medical decision making process. - Radiology Chest XR Radiology Interpretation Completed By: Radiologist Summary of Radiographic Findings: IMPRESSION: No evidence for active cardiopulmonary disease. Dr. Goins has reviewed this report. - Ultrasound No standard instances Ultrasound Interpretation Completed By: Radiologist Summary of Ultrasound Findings: Left lower extremity US IMPRESSION: No evidence for deep venous thrombosis. Dr. Goins has reviewed this report. - EKG 11:16 Cardiac Rate: NL - at 79 bpm EKG Rhythm: Sinus Rhythm Summary of EKG Findings: Normal sinus rhythm at [address] elevations. Re-Evaluation - Re-Evaluation First Eval Re-Evaluation Time: 14:12 Change: Improved Comment: Reviewed Dr. Blackburn's recommendations with pt. Discussed discharge plan. She will be discharged home with follow up from PCP. Repeat blood pressure prior to discharge is 116/68. Hypertension Course/Dx - Course Assessment/Plan: This pt is a 33 y/o female, with hx of HTN, presenting to [facility] c/o high blood pressure for the past 3 days. She notes her blood pressure is usually 150/90 or higher at all times but over the past 3 it has significantly increased. Her antihypertensive medications are hydrochlorothiazide and metoprolol, which she takes at 0700 every day. Pt reports last night her blood pressure was 183/123. She states that her blood pressure throughout the night did not go down. Pt c/o SOB, chest pain, left arm pain, left calf pain, right eye pain, headache. Denies swelling in her legs. Her PCP is Dr. Solis. Pt notes she also sees Dr. Blackburn and Dr. Jimenes. Pt has had 2 EEGs in the past and reports they were normal. Denies hx of migraines. Allergic to IV contrast dye. LMP: 8 years ago. Blood work without any significant abnormality except for glucose of 101, lactic acid is 2.1. D Dimer is <200. Initially the patients blood pressure significant elevated 183/ 125, the patient is tachycardic. The patient was given labetalol 20 mg IV which decreased blood pressure. The patient also complaining of left calf pain and ultrasound of the left lower extremity impression: no evidence for DVT. Chest x-ray impression: No evidence for active cardiopulmonary disease. The patient was complaining of a headache therefore the patient was given Reglan and Benadryl. After medications the patients symptoms have resolved. The blood pressure is 116/68. The patient is asymptomatic. I discussed my physical exam and findings with Dr. Blackburn from cardiology and he reports that the patient had an outpatient blood pressure monitoring and blood pressure was 120/76 when awake and 116/68 when she was sleeping. Therefore he agrees to increase her metoprolol 12.5 mg twice a day and to monitor her blood pressure closely at home as well as follow up with her PCP. I discussed all the findings and test results with the patient and the need to follow-up with PCP. She understands and agrees. At this point I discussed all the findings and test results with the patient. She was instructed to return to the emergency room immediately if any of the symptoms return or worsen. Patient understand and agree. Neurological exam before discharge: Patient is alert and oriented x 3. No acute neurological deficits. Patient's vital signs are stable. Patient is to follow up with PCP in the next 2 3 days. She understands and agrees. Plan of care was discussed with the patient and patient understands and agrees with the plan of care. All questions were answered at patient satisfaction. There were no further complaints or concerns. - Diagnoses Provider Diagnoses: Uncontrolled hypertension - Physician Notifications Discussed Care Of Patient With: Jeremy Blackburn Time Discussed With Above Provider: 13:56 Instructed by Provider To: Other - Discussed pt care with Dr. Blackburn, boiling house oiler, who believes pt's increase in blood pressure is secondary to high anxiety. Dr. Blackburn reports that since blood pressure here is elevated he recommends increasing metoprolol to 12.5 mg twice a day but she will need to monitor her blood pressure. Discharge ED - Sign-Out/Discharge Documenting (check all that apply): Patient Departure - Discharge home - Discharge Plan Condition: Stable Disposition: HOME Patient Education Materials: Hypertension (ED) Referrals: Juanita Montalvo DO [Doctor of Osteopathy] - Jeremy Blackburn MD [Medical Doctor] - Additional Instructions: Increase Metoprolol to 12.5 mg twice a day. Monitor your blood pressure closely. Follow up with your primary care provider in 2-3 days. Also follow up with Dr. Blackburn, boiling house oiler. RETURN TO THE ED FOR ANY WORSENING OR NEW SYMPTOMS. - Billing Disposition and Condition Condition: STABLE Disposition: Home - Attestation Statements Document Initiated by Luigi: Yes Documenting Scribe: Niki De Guzman Provider For Whom Luigi is Documenting (Include Credential): Lucein Goins MD Scribe Attestation: INiki, scribed for Lucien Goins MD on 07/21/19 at 1825. Scribe Documentation Reviewed: Yes Provider Attestation: The documentation as recorded by the scribeNiki accurately reflects the service I personally performed and the decisions made by me, Lucien Goins MD Status of Scribe Document: Viewed
--- OUTSIDE RECORDS SUMMARY | 2019-07-21 11:09 | XMS REPORT | Continuity of Care Document ---
:1985 External Reference #:[id number] Author Name Shdaia Solis M.D. Address [address] [facility] [place] [address] Care Team Providers Name Role Phone Shadia Solis M.D. - Family Medicine Care Team Information Area Safety Manager Unavailable Problems Active Problems Provider Date Essential hypertension Shadia Solis M.D. Onset: 05/03/2019 Dysthymia Shadia Solis M.D. Onset: 05/03/2019 Cervical disc disorder Shadia Solis M.D. Onset: 06/07/2019 Resolved Problems Alcohol dependence Shadia Solis M.D. Onset: 05/03/2019 Resolved: 06/07/2019 Social History Type Date Description Comments Sex Unknown Tobacco Use Start: Unknown Never Smoked Cigarettes ETOH Use Consumes 2 beers per day Tobacco Use Start: Unknown Nonsmoker Smoking Status Reviewed: 05/03/19 Nonsmoker Allergies, Adverse Reactions, Alerts Active Allergies Reaction Severity Comments Date Contrast Dye anaphalatic 05/03/2019 Magnesium Sulfate Itching 05/03/2019 Terbutaline Itching 05/03/2019 Adhesives skin breakdown 05/03/2019 Medications Active Medications SIG Qnty Indications Ordering Date Provider Duloxetine HCL 1 by mouth 30caps Shadia Solis, 05/03/[address] Beckford every day M.D. Cyclobenzaprine HCL 1/2-1 tablet 30tabs M25.552 Shadia Solis 05/03/2019 5mg Tablets every night at M.D. bedtime as needed Hydrochlorothiazide 1 by mouth Unknown 12.5mg every day Capsules Claritin 1 by mouth Unknown 10mg Tablets every day Ondansetron 1 by mouth Unknown 4mg Tablets Dispers every 8h as needed nausea Hyoscyamine Sulfate take one by Unknown 0.125mg mouth every 15 Tablets Sub mins as needed for pain Mirena (52 MG) 2016 Unknown 20mcg/24HR IUD Albuterol Sulfate HFA 2 puffs up to Unknown 108(90Base) 4 times daily mcg/Act Aerosol Metoprolol Succinate ER 1/2 by mouth Unknown 25mg every day Tablets ER 24HR Immunizations Description No Information Available Vital Signs Date Vital Result Comment 06/07/2019 11:17am BP Systolic 130 mmHg BP Diastolic 90 mmHg Heart Rate 66 /min Body Temperature 98.1 F Height 65.5 inches 5'5.50" measured Weight 157.00 lb BMI (Body Mass Index) 25.7 kg/m2 05/03/2019 1:36pm BP Systolic 124 mmHg BP Diastolic 90 mmHg Heart Rate 80 /min Body Temperature 98.6 F Respiratory Rate 12 /min Height 65.5 inches 5'5.50" measured Weight 160.00 lb BMI (Body Mass Index) 26.2 kg/m2 Results Description No Information Available Procedures Date Code Description Status 10/18/2017 54777809 Mammogram Completed Medical Devices Description No Information Available Encounters Type Date Location Provider Dx Diagnosis Office Visit 05/03/2019 [facility] Shadia Solis I1Kojo Essential ( primary) 1:20p M.D. hypertension F34.1 Dysthymic disorder F41.9 Anxiety disorder, unspecified M25.552 Pain in left hip F10.20 Alcohol dependence, uncomplicated Assessments Date Code Description Provider 06/07/2019 I10 Essential (primary) hypertension Shadia Solis M.D. 06/07/2019 F41.9 Anxiety disorder, unspecified Shadia Solis M.D. 05/03/2019 I10 Essential (primary) hypertension Shadia Solis M.D. 05/03/2019 F34.1 Dysthymic disorder Shadia Solis M.D. 05/03/2019 F41.9 Anxiety disorder, unspecified Shadia Solis M.D. 05/03/2019 M25.552 Pain in left hip Shadia Solis M.D. 05/03/2019 F10.20 Alcohol dependence, uncomplicated Shadia Solis M.D. Plan of Treatment 06/07/2019 - Shadia Solis M.D.I10 Essential (primary) hypertensionComments:The patient will continue to monitor blood pressure and let me know the blood pressure results if there are readings persistently above 140/90. Goal blood pressure is less than 130/80. Recommend low salt/cardiac diet such as the Mediterranean diet and routine exercise at least 30 minutes a day.F41.9 Anxiety disorder, unspecifiedComments:stable on regimen; continue for at least 6 monthsFollow up:physicalAllComments:Medication Management Patient Understands medications she's taking? Yes No Are there Barriers to Adherence? Yes No Has the patient been asked about herbal supplements and therapies, and OTC meds? Yes No Functional Status Description No Information Available Mental Status Description No Information Available Referrals Description No Information Available
[2019-07-21 11:30] LABS: ABS Eosinophils 0.2 10^3/ul (0-0.6); ABS Monocytes 0.5 10^3/ul (0-0.8); ABS Neutrophils 4.8 10^3/ul (1.5-7.7); Eosinophil % 2.3 %; Hematocrit 43 % (35-47); Hemoglobin 14.6 g/dL (12.0-16.0); Lymphocyte % 26.7 %; Mean Corpuscular HGB Conc 34 g/dL (31-36); Mean Corpuscular Hemoglobin 34 pg (27-31); Mean Corpuscular Volume 98 fL (80-97); Mean Platelet Volume 8.9 fL (7.4-10.4); Nucleated Red Blood Cells % 0.1; Platelet Count 268 10^3/uL (150-450); Red Blood Count 4.32 10^6 /uL (3.70-4.87); Red Cell Distribution Width 13 % (10-15); White Blood Count 7.5 10^3/uL (3.5-10.8)
[2019-07-21 11:51] LABS: ALT 21 U/L (7-52); AST 20 U/L (13-39); Albumin 4.3 g/dL (3.2-5.2); Albumin/Globulin Ratio 1.7 (1-3); Alkaline Phosphatase 62 U/L (34-104); Anion Gap 8 mmol/L (2-11); BUN/Creatinine Ratio 13.5 (8-20); Blood Urea Nitrogen 12 mg/dL (6-24); CO2 Carbon Dioxide 27 mmol/L (22-32); Calcium 9.1 mg/dL (8.6-10.3); Chloride 102 mmol/L (101-111); Creatine Kinase 121 U/L (10-223); EGFR African American 87.3 (>60); EGFR Non-African American 72.2 (>60); Globulin 2.6 g/dL (2-4); Glucose 102 mg/dL (70-100); Potassium 3.8 mmol/L (3.5-5.0); Sodium 137 mmol/L (135-145); Total Protein 6.9 g/dL (6.4-8.9)
[2019-07-21 11:54] LABS: CKMB ng/mL 2.5 ng/mL (0.6-6.3)
[2019-07-21] MEDS ORDERED: Metoclopramide IV* 5 MG/ML 2 ML VIAL IV SLOW PU ONE (11:54)
[2019-07-21] MEDS ORDERED: Morphine 4 MG/ML VIAL (1 ml) 4 MG/ML VIAL IV ONE (11:54)
[2019-07-21] MEDS ORDERED: diPHENhydraMINE IV* 50 MG/ML 1 ml VIAL (BENADRYL) IV ONE (11:54)
[2019-07-21 11:57] LABS: HCG Pregnancy < 0.60 mIU/mL
[2019-07-21 14:23] VITALS: BP 142/96
== END 2019-07-21 14:17 | disposition home or self-care (01) ==
LOC: ED 10:41
DX: I10 Essential (primary) hypertension (principal); R07.9 Chest pain, unspecified; R51 Headache; R06.02 Shortness of breath; Z79.899 Other long term (current) drug therapy; J45.909 Unspecified asthma, uncomplicated; Z87.891 Personal history of nicotine dependence; M79.662 Pain in left lower leg
CPT/HCPCS: 36415; 71045; 80053; 82550; 82553; 83605; 83880; 84443; 84484; 84702; 85025; 85379; 93005; 96374; 96375; 99284; J1200; J2270; J2765

== ENCOUNTER 2019-10-19 08:23 | Emergency (ER) | payer BC ==
--- OUTSIDE RECORDS SUMMARY | 2019-10-19 08:34 | XMS REPORT | Continuity of Care Document ---
:1985 External Reference #:[id number] Author Name Karely Jernigan N.P. (transmitted by agent of provider Linda Eubanks) Address [address] [place] [address] Care Team Providers Name Role Phone August Walsh MD - Hospitalist Care Team Information Customer Operations Associate [phone] Problems Active Problems Provider Date Displacement of cervical intervertebral disc Nathaniel Wallace M.D. Onset: 11/06 without myelopathy Neck pain Nathaniel Wallace M.D. Onset: 03/28/2015 Brachial neuritis Nathaniel Wallace M.D. Onset: 01/05/2018 Postconcussion syndrome August Walsh MD Onset: 06/13/2018 Essential hypertension August Walsh MD Onset: 06/13/2018 Low back pain August Walsh MD Onset: 06/13/2018 Migraine without aura, not refractory Swapnil Jimenes MD Onset: 11/09/2018 Dizziness and giddiness Swapnil Jimenes MD Onset: 01/12/2019 Otitis media August Walsh MD Onset: 12/26/2018 Nausea and vomiting August Walsh MD Onset: 12/26/2018 Acute upper respiratory infection, unspecified August Walsh MD Onset: 2018 Social History Type Date Description Comments Sex Unknown Cigarette Use Quit 6 Years Ago ETOH Use 07/01/2018 Currently consumes variable amounts of alcohol beer up to 6-8 beers at social events, 0-2 other nights. Pt. has cut back as of this week 07/15/18 Recreational Drug Use Denies Drug Use Tobacco Use Start: Unknown End: Patient is a former Unknown smoker Smoking Status Reviewed: 08/24/19 Patient is a former smoker Exercise Type/Frequency Exercises sporadically Allergies, Adverse Reactions, Alerts Active Allergies Reaction Severity Comments Date CT Contrast Severe 10/05/2016 Magnesium Sulfate Nausea and Vomiting 10/05/2016 Terbutaline sulfate 10/05/2016 Tape 10/05/2016 Adhesive 12/26/2018 Inactive Allergies NKDA 11/06/2013 NKDA 09/30/2016 Medications Active Medications SIG Qnty Indications Ordering Date Provider Hydrochlorothiazide take one tab 90caps I10 August Walsh MD 12/06/2018 12.5mg daily Capsules Metoprolol Succinate ER 1/2 by mouth 45tabs I10 Karely S. 11/15/2018 25mg twice daily Foster, N.P. Tablets ER 24HR Glucose Meter Test Strips 1 as needed to 100units R23.2 Juanita 08/24/2018 Advanced test blood DO Katia Strips sugar True Metrix Meter 1 unit 1units R23.2 Juanita 08/24/2018 Device DO Katia Lancets use one as 30units Juanita 08/24/2018 30G Misc needed DO Katia Mirena Unknown 20mcg/24HR IUD Albuterol Sulfate HFA 2 puffs every 6 Unknown 90mcg hrs as needed Nebulizer Hyoscyamine Sulfate take one tab Unknown 0.125mg under the Tablets Sub tounge every 15 mins when necessary Ondansetron dissolve one Unknown 4mg Tablets Dispers tablet orally every 8 hours as needed for nausea. Claritin 1 by mouth Unknown 10mg Capsules every day Multi Vitamin Daily 1 by mouth Unknown Tablets every day Cymbalta 1 by mouth Unknown 60mg Caps DR Part every day Immunizations Description No Information Available Vital Signs Date Vital Result Comment 08/24/2019 3:25pm Height 66.6 inches 5'6.60" Weight 177.00 lb with shoes Heart Rate 90 /min BP Systolic Sitting 122 mmHg lue reg cuff BP Diastolic Sitting 72 mmHg lue reg cuff BP Systolic Standing 122 mmHg lue reg cuff BP Diastolic Standing 74 mmHg lue reg cuff Respiratory Rate 14 /min BMI (Body Mass Index) 28.1 kg/m2 Ejection Fraction 55-60% 14 01/12/2019 2:48pm Height 66.6 inches 5'6.60" Weight 168.00 lb Heart Rate 72 /min BP Systolic 140 mmHg BP Diastolic 80 mmHg BMI (Body Mass Index) 26.6 kg/m2 Results Test Acquired Date Facility Test Result H/L Range Note CBC Auto 07/21/2019 [facility] White Blood 7.5 10^3/uL Normal 3.5-10.[address] [place] [address] [phone] Red Blood Count 4.32 10^6/uL Normal 3.70-4.87 Hemoglobin 14.6 g/dL Normal 12.0-16.0 Hematocrit 43 % Normal 35-47 Mean Corpuscular Volume 98 fL High 80-97 Mean Corpuscular Hemoglobin 34 pg High 27-31 Mean Corpuscular HGB Conc 34 g/dL Normal 31-36 Red Cell Distribution Width 13 % Normal 10-15 Platelet Count 268 10^3/uL Normal 150-450 Mean Platelet Volume 8.9 fL Normal 7.4-10.4 Abs Neutrophils 4.8 10^3/uL Normal 1.5-7.7 Abs Lymphocytes 2.0 10^3/uL Normal 1.0-4.8 Abs Monocytes 0.5 10^3/uL Normal 0-0.8 Abs Eosinophils 0.2 10^3/uL Normal 0-0.6 Abs Basophils 0.0 10^3/uL Normal 0-0.2 Abs Nucleated RBC 0.0 10^3/uL Granulocyte % 63.8 % Lymphocyte % 26.7 % Monocyte % 6.8 % Eosinophil % 2.3 % Basophil % 0.4 % Nucleated Red Blood Cells % 0.1 Laboratory 07/21/2019 [facility] D Dimer < 200 Normal Less [address] Quantitative ng/mL Than [address] [place] [address] [phone] B-Type Natriuretic Peptide BNP 20 pg/mL <=100 Lactic Acid 2.1 mmol/L Critical high 0.5-2.0 2 Comp Metabolic 07/21/2019 [facility] Sodium 137 mmol/L Normal 135-[address] [place] [address] [phone] Potassium 3.8 mmol/L Normal 3.5-5.0 Chloride 102 mmol/L Normal 101-111 Co2 Carbon Dioxide 27 mmol/L Normal 22-32 Anion Gap 8 mmol/L Normal 2-11 Glucose 102 mg/dL High 70-100 Blood Urea Nitrogen 12 mg/dL Normal 6-24 Creatinine 0.89 mg/dL Normal 0.51-0.95 BUN/Creatinine Ratio 13.5 Normal 8-20 Calcium 9.1 mg/dL Normal 8.6-10.3 Total Protein 6.9 g/dL Normal 6.4-8.9 Albumin 4.3 g/dL Normal 3.2-5.2 Globulin 2.6 g/dL Normal 2-4 Albumin/Globulin Ratio 1.7 Normal 1-3 Total Bilirubin 0.50 mg/dL Normal 0.2-1.0 Alkaline Phosphatase 62 U/L Normal 34-104 Alt 21 U/L Normal 7-52 Ast 20 U/L Normal 13-39 Egfr Non- 72.2 >60 Egfr 87.3 >60 3 Laboratory test 07/21/2019 [facility] Creatine 121 U/L Normal 10-223 finding [address] [facility] Kinase(CK) [place] [address] [phone] Troponin-I (TnI) 0.00 ng/mL <0.04 4 CKMB 07/21/2019 [facility] CKMB ng/mL 2.5 ng/mL Normal 0.6- 6.3 [address] [place] [address] [phone] Laboratory test 07/21/2019 [facility] HCG < 0.[address] mIU/[place] [address] [phone] TSH (Thyroid Stim Horm) 2.70 mcIU/mL Normal 0.34-5.60 Laboratory test 04/04/2019 [facility] Troponin-I (TnI) 0.00 ng/ mL <0.04 6 finding [address] [place] [address] [phone] Urinalysis 04/04/2019 [facility] Urine Color Straw Profile [address] [place] [address] [phone] Urine Appearance Clear Urine Specific [place] 1.004 Low 1.010-1.030 Urine pH 6.0 Normal 5-9 Urine Urobilinogen Negative Negative Urine Ketones Negative Negative Urine Protein Negative Negative Urine Leukocytes Negative Negative Urine Blood Negative Negative Urine Nitrite Negative Negative Urine Bilirubin Negative Negative Urine Glucose Negative Negative Inr/Protime 04/04/2019 [facility] Inr 0.98 Normal 0.82-1.[address] [place] [address] [phone] CBC Auto Diff 04/04/2019 [facility] White Blood 7.7 Normal 3.5 -10.[address] Count 10^3/[place] [address] [phone] Red Blood Count 4.57 10^6/uL Normal 3.70-4.87 Hemoglobin 15.2 g/dL Normal 12.0-16.0 Hematocrit 44 % Normal 35-47 Mean Corpuscular Volume 97 fL Normal 80-97 Mean Corpuscular Hemoglobin 33 pg High 27-31 Mean Corpuscular HGB Conc 34 g/dL Normal 31-36 Red Cell Distribution Width 13 % Normal 10-15 Platelet Count 265 10^3/uL Normal 150-450 Mean Platelet Volume 9.2 fL Normal 7.4-10.4 Abs Neutrophils 4.8 10^3/uL Normal 1.5-7.7 Abs Lymphocytes 2.2 10^3/uL Normal 1.0-4.8 Abs Monocytes 0.6 10^3/uL Normal 0-0.8 Abs Eosinophils 0.2 10^3/uL Normal 0-0.6 Abs Basophils 0.0 10^3/uL Normal 0-0.2 Abs Nucleated RBC 0.0 10^3/uL Granulocyte % 61.7 % Lymphocyte % 28.1 % Monocyte % 7.4 % Eosinophil % 2.2 % Basophil % 0.6 % Nucleated Red Blood Cells % 0.1 Comp Metabolic 04/04/2019 [facility] Sodium 138 mmol/L Normal 135-[address] [place] [address] [phone] Potassium 4.0 mmol/L Normal 3.5-5.0 Chloride 103 mmol/L Normal 101-111 Co2 Carbon Dioxide 27 mmol/L Normal 22-32 Anion Gap 8 mmol/L Normal 2-11 Glucose 108 mg/dL High 70-100 Blood Urea Nitrogen 14 mg/dL Normal 6-24 Creatinine 0.82 mg/dL Normal 0.51-0.95 BUN/Creatinine Ratio 17.1 Normal 8-20 Calcium 10.1 mg/dL Normal 8.6-10.3 Total Protein 7.7 g/dL Normal 6.4-8.9 Albumin 4.7 g/dL Normal 3.2-5.2 Globulin 3.0 g/dL Normal 2-4 Albumin/Globulin Ratio 1.6 Normal 1-3 Total Bilirubin 0.40 mg/dL Normal 0.2-1.0 Alkaline Phosphatase 66 U/L Normal 34-104 Alt 21 U/L Normal 7-52 Ast 21 U/L Normal 13-39 Egfr Non- 79.3 >60 Egfr 96.0 >60 8 Laboratory test 04/04/2019 [facility] Troponin-I (TnI) 0.00 ng/ mL <0.04 9 [address] [place] [address] [phone] 1 Please note: The following may produce a false positive D Dimer test: - Rheumatoid factor greater than 60 IU/ml - Plasma hemoglobin greater than 0.05 gm/dl - Bilirubin greater than 50 mg/dl - Lipids greater than 1000 mg/dl - FDP greater than 20 ug/ml 2 Critical Result LACT:2.1 Called to [id number] at: 11:49:25 by:HOMERO Read back by:[facility] Severe Sepsis and Septic Shock Management Bundle Measure requires all lactic acids initially measuring >2.0 mmol/L be repeated. 3 Because ethnic data is not always readily available, this report includes an eGFR for both -Americans and non- Americans. The National Kidney Disease Education Program (NKDEP) does not endorse the use of the MDRD equation for patients that are not between the ages of 18 and 70, are , have extremes of body size, muscle mass, or nutritional status, or are non- or non-. According to the National Kidney Foundation, irrespective of diagnosis, the stage of the disease is based on the level of kidney function: Stage Description GFR(mL/min/1.73 m(2)) 1 Kidney damage with normal or decreased GFR 90 2 Kidney damage with mild decrease in GFR 60-89 3 Moderate decrease in GFR 30-59 4 Severe decrease in GFR 15-29 5 Kidney failure <15 (or dialysis) 4 Troponin-I testing on Plasma Separator Tubes (PST) has a known false positive rate of 0.20-0.40%. All positive troponins reflex immediately to secondary confirmatory testing. Using the [employer] DxI 800 Access Immunoassay systems, the 99th percentile upper reference limit was demonstrated to be < 0.03 ng/mL. 5 <5.0 Negative 5.0 - 25.0 Indeterminate (Repeat testing recommended after 72 hours) >25.0 Positive Perimenopausal women can display HCG levels of up to 20 mIU/mL 6 Troponin-I testing on Plasma Separator Tubes (PST) has a known false positive rate of 0.20-0.40%. All positive troponins reflex immediately to secondary confirmatory testing. Using the [employer] DxI 800 Access Immunoassay systems, the 99th percentile upper reference limit was demonstrated to be < 0.03 ng/mL. 7 Standard intensity warfarin therapeutic range: 2.0-3.0 High intensity warfarin therapeutic range: 2.5-3.5 8 Because ethnic data is not always readily available, this report includes an eGFR for both -Americans and non- Americans. The National Kidney Disease Education Program (NKDEP) does not endorse the use of the MDRD equation for patients that are not between the ages of 18 and 70, are , have extremes of body size, muscle mass, or nutritional status, or are non- or non-. According to the National Kidney Foundation, irrespective of diagnosis, the stage of the disease is based on the level of kidney function: Stage Description GFR(mL/min/1.73 m(2)) 1 Kidney damage with normal or decreased GFR 90 2 Kidney damage with mild decrease in GFR 60-89 3 Moderate decrease in GFR 30-59 4 Severe decrease in GFR 15-29 5 Kidney failure <15 (or dialysis) 9 Troponin-I testing on Plasma Separator Tubes (PST) has a known false positive rate of 0.20-0.40%. All positive troponins reflex immediately to secondary confirmatory testing. Using the [employer] DxI 800 Access Immunoassay systems, the 99th percentile upper reference limit was demonstrated to be < 0.03 ng/mL. Procedures Date Code Description Status 08/24/2019 30037 EKG Tracing & Interpretation Completed Medical Devices Description No Information Available Encounters Description No Information Available Assessments Date Code Description Provider 08/24/2019 I10 Essential (primary) hypertension Karely Jernigan, N.P. 08/24/2019 F41.1 Generalized anxiety disorder Karely Jernigan, N.P. 08/24/2019 R63.5 Abnormal weight gain Karely Jernigan N.P. Plan of Treatment Future Appointment(s):12/05/2019 1:40 pm - Jeremy Blackburn M.D. at [facility]09/25/2019 3:30 pm - Karely Jernigan NBety at [facility]2018 - Karely Jernigan NLindaPLindaI10 Essential (primary) hypertensionFollow up:OV 1mo OV Karely OV JFM 11/2019Recommendations:Increase Toprol to 1/2 (25mg) twice daily Cut back on ibuprofen I will discuss with Dr Blackburn referral to endocrine or further lab testing. Try to cut back ibuprofen and use Tylenol 1000mg 2-3x daily Suggest regular moderate exercise 30min to help heart rate.F41.1 Generalized anxiety [id number] Abnormal weight gain Functional Status Description No Information Available Mental Status Description No Information Available Referrals Description No Information Available
--- NOTE | 2019-10-19 08:59 | ED ---
Complex/Multi-Sys Presentation - HPI Summary HPI Summary: 34-year-old female with significant past medical history of hypertension, anxiety presents to emergency department today complaining of high blood pressure and cough. Patient states yesterday she began having upper respiratory symptoms with associated increased blood pressure. Patient's blood pressure is 185/121 upon arrival to the emergency department. She endorses mild headache which she denies being the worst headache of her life, "black spots in my vision" but denies abdominal pain, chest pain, shortness of breath. Patient states her blood pressure being approximately 150/90 yesterday which is her usual. Patient takes chlorothiazide and metoprolol for her blood pressure. LMP "8 years ago". Family history and surgical history noncontributory. - History Of Current Complaint Chief Complaint: EDHypertension Time Seen by Provider: 10/19/19 08:46 Hx Obtained From: Patient Onset/Duration: Sudden Onset Timing: Constant Severity Currently: Moderate Severity Initially: Moderate Character: Pressure Associated Signs And Symptoms: Positive: Headache, Cough - Allergies/Home Medications Allergies/Adverse Reactions: Allergies Allergy/AdvReac Type Severity Reaction Status Date / Time Iodinated Contrast Media Allergy Anaphylatic Verified 10/19/19 08:27 [Iodinated Contrast- Oral Shock and IV Dye] iohexol Allergy Shortness Verified 10/19/19 08:27 of Breath magnesium sulfate Allergy Nausea And Verified 10/19/19 08:27 Vomiting PMH/Surg Hx/FS Hx/Imm Hx Endocrine/Hematology History: Denies: Hx Diabetes - gestational in past, Hx Thyroid Disease Cardiovascular History: Reports: Hx Hypertension - on meds Denies: Hx Pacemaker/ICD Respiratory History: Reports: Hx Asthma Denies: Hx Chronic Obstructive Pulmonary Disease (COPD) GI History: Denies: Hx Ulcer History: Denies: Hx Dialysis, Hx Renal Disease Sensory History: Denies: Hx Contacts or Glasses, Hx Hearing Aid Opthamlomology History: Denies: Hx Contacts or Glasses Psychiatric History: Denies: Hx Panic Disorder - Cancer History Hx Chemotherapy: No Hx Radiation Therapy: No - Surgical History Surgery Procedure, Year, and Place: [facility]; 2006 [facility], [facility] [place]ONOSCOPY; Laminectomy. [facility] [place] Hx Anesthesia Reactions: Yes - DURING LABOR, PROBLEMS WITH EPIDURAL-DROP IN BP, HR Infectious Disease History: No Infectious Disease History: Denies: Hx Hepatitis, Hx Human Immunodeficiency Virus (HIV), History Other Infectious Disease, Traveled Outside the [place] in Last 30 Days - Family History Known Family History: Negative: Cardiac Disease, Hypertension, Diabetes - Social History Alcohol Use: Occasionally Alcohol Amount: 1-6 beers Hx Substance Use: No Substance Use Type: Reports: None Smoking Status (MU): Former Smoker Type: Cigarettes Review of Systems Constitutional: Negative Positive: Blurred Vision. Negative: Photophobia ENT: Negative Cardiovascular: Negative Respiratory: Negative Gastrointestinal: Negative Genitourinary: Negative Musculoskeletal: Negative Skin: Negative Positive: Headache. Negative: Weakness, Paresthesia, Numbness, Syncope, Slurred Speech Psychological: Normal All Other Systems Reviewed And Are Negative: Yes Physical Exam - Summary Physical Exam Summary: Patient has no nuchal rigidity and no focal neurological deficits. Lung sounds are clear although patient does have a dry cough. Triage Information Reviewed: Yes Vital Signs On Initial Exam: Initial Vitals Temp Pulse Resp BP Pulse Ox 98.4 F 86 16 185/121 100 10/19/19 08:24 10/19/19 08:24 10/19/19 08:24 10/19/19 08:24 10/19/19 08:24 Vital Signs Reviewed: Yes Appearance: Positive: Well-Appearing, No Pain Distress, Well-Nourished Skin: Positive: Warm, Skin Color Reflects Adequate Perfusion Eyes: Positive: EOMI, MARILEE ENT: Positive: Hearing grossly normal Respiratory/Lung Sounds: Positive: Clear to Auscultation, Breath Sounds Present Cardiovascular: Positive: RRR, S1, S2 Abdomen Description: Positive: Nontender, Soft Bowel Sounds: Positive: Present Musculoskeletal: Positive: Normal, Strength/ROM Intact Neurological: Positive: Normal, Sensory/Motor Intact, Normal Gait, Facial Symmetry, Speech Normal Psychiatric: Positive: Normal AVPU Assessment: Alert Procedures - Sedation Patient Received Moderate/Deep Sedation with Procedure: No Diagnostics - Vital Signs Vital Signs Temp Pulse Resp BP Pulse Ox 10/19/19 08:24 98.4 F 86 16 185/121 100 - Laboratory Result Diagrams: 10/19/19 09:08 10/19/19 09:04 Lab Statement: Any lab studies that have been ordered have been reviewed, and results considered in the medical decision making process. Complex Multi-Symp Course/Dx Course Of Treatment: Patient was evaluated in the emergency department today due to hypertension. Patient was seen and examined her vitals are stable and she was afebrile. She is given 20 mg of labetalol IV as well as Reglan and Benadryl for her headache. She has normal neurological exam and denied this being the worst headache of her life so CT imaging was not required. An EKG was done which showed normal sinus rhythm at 71 bpm. Normal intervals, normal axis. There is no evidence of STEMI however there are T-wave inversions in lead V1 and lead 3. These EKG findings are unchanged when compared to prior done on 07/21/19. Chest x-ray shows no active cardiopulmonary disease. Laboratory studies were drawn and were within normal limits. Urinalysis unremarkable. After medication patient's blood pressure resolved to 134/70 and felt much better. Patient is to follow-up with her primary care provider further evaluation and management. Patient agrees to this plan. - Diagnoses Differential Diagnoses/HQI/PQRI: Other - Viral upper respiratory infection, bronchitis, hypertension, hypertensive urgency Provider Diagnoses: Hypertension, Bronchitis Discharge ED - Sign-Out/Discharge Documenting (check all that apply): Patient Departure, Post-Discharge Follow Up - Discharge Plan Condition: Stable Disposition: HOME Patient Education Materials: Acute Bronchitis (ED), Hypertension (ED) Referrals: Shadia Solis MD [Primary Care Provider] - 2 Days Additional Instructions: You were seen in the emergency department today for hypertension. We gave you Reglan, Benadryl and labetalol for your blood pressure. There appeared to be no acute medical problem requiring intervention at this time or acute side effects from your elevation in blood pressure. Please follow up with your primary care provider in one to 2 days for further evaluation and management. Your upper respiratory symptoms are likely due to a virus and will resolve on their own shortly. Please return to the emergency department immediately if you develop any new or worsening symptoms. - Billing Disposition and Condition Condition: STABLE Disposition: Home
[2019-10-19] MEDS: diPHENhydraMINE IV* 50 MG/ML 1 ml VIAL (BENADRYL) IV ONE (09:14)
[2019-10-19] MEDS: Metoclopramide IV* 5 MG/ML 2 ML VIAL IV ONE (09:14)
[2019-10-19] MEDS: Labetalol IV* 5 MG/ML 20 ML VIAL IV PUSH ONE (09:14)
[2019-10-19 09:24] LABS: ABS Basophils 0.1 10^3/ul (0-0.2); ABS Eosinophils 0.1 10^3/ul (0-0.6); ABS Lymphocytes 2.7 10^3/ul (1.0-4.8); ABS Monocytes 0.7 10^3/ul (0-0.8); ABS Neutrophils 8.7 10^3/ul (1.5-7.7); Eosinophil % 0.6 %; Hematocrit 39 % (35-47); Hemoglobin 13.4 g/dL (12.0-16.0); Lymphocyte % 21.8 %; Mean Corpuscular HGB Conc 35 g/dL (31-36); Mean Corpuscular Hemoglobin 34 pg (27-31); Mean Corpuscular Volume 98 fL (80-97); Mean Platelet Volume 8.9 fL (7.4-10.4); Platelet Count 284 10^3/uL (150-450); Red Blood Count 3.97 10^6 /uL (3.70-4.87); Red Cell Distribution Width 13 % (10-15); White Blood Count 12.3 10^3/uL (3.5-10.8)
[2019-10-19 09:31] LABS: Albumin 4.1 g/dL (3.2-5.2); Albumin/Globulin Ratio 1.6 (1-3); Calcium 9.4 mg/dL (8.6-10.3); EGFR African American 104.2 (>60); EGFR Non-African American 86.1 (>60); Globulin 2.6 g/dL (2-4); Potassium 3.5 mmol/L (3.5-5.0); Total Bilirubin 0.3 mg/dL (0.2-1.0); Total Protein 6.7 g/dL (6.4-8.9)
[2019-10-19 10:40] LABS: Urine Appearance Clear; Urine Bilirubin Negative (Negative); Urine Blood 1+ (Negative); Urine Color Yellow; Urine Glucose Negative (Negative); Urine Ketones Negative (Negative); Urine Nitrite Negative (Negative); Urine Protein Negative (Negative); Urine Specific Gravity 1.011 (1.010-1.030); Urine Urobilinogen Negative (Negative)
[2019-10-19 10:43] LABS: Urine Bacteria Absent (Absent); Urine Red Blood Cell Trace(0-2/hpf) (Absent); Urine Squamous Epithelial Cell Present (Absent); Urine White Blood Cell Absent (Absent)
[2019-10-19 10:59] VITALS: BP 138/87
== END 2019-10-19 10:59 | disposition home or self-care (01) ==
LOC: ED 08:23
DX: I10 Essential (primary) hypertension (principal); J40 Bronchitis, not specified as acute or chronic; Z87.891 Personal history of nicotine dependence; Z79.899 Other long term (current) drug therapy; Z88.8 Allergy status to other drugs, medicaments and biological substances; Z91.041 Radiographic dye allergy status
CPT/HCPCS: 36415; 71046; 80053; 81003; 81015; 85025; 93005; 96374; 96375; 99283; J1200; J2765

== ENCOUNTER 2023-06-28 05:55 | Observation (INO) ==
[~2023-06-28 05:55] MED LIST: Chlorhexidine MOUTHWASH 0.12% 15 ML UDC ONE
[2023-06-28] MEDS ORDERED: Buffered Lidocaine 1% SYRIN 1 ml INTRADERM ONE (06:00)
[2023-06-28] MEDS ORDERED: Lactated Ringers 1000 ml BAG 1,000 ML IV SCH (06:00)
[2023-06-28] MEDS ORDERED: Buffered Lidocaine 1% SYRIN 1 ml ONE (06:28)
[2023-06-28] MEDS ORDERED: ceFAZolin 2 GM in NS PREMIX 2 GM/100 ML BAG IVPB ONE (06:28)
[2023-06-28 06:36] LABS: Rapid COVID-19 Molecular Undetected (Undetected)
[2023-06-28] MEDS ORDERED: Propofol 10 MG/ML 20 ML BTL ONE ×2 (06:49→09:36)
[2023-06-28] MEDS ORDERED: Lidocaine 2% PF 5 ML VIAL ONE (06:50)
[2023-06-28] MEDS ORDERED: fentaNYL 250 mcg/5 ml 50 MCG/ML 5 ml VIAL (250 MCG) ONE (06:51)
[2023-06-28] MEDS ORDERED: Midazolam 2 mg/2 ml VIAL 1 mg/ml 2 ml VIAL (2 mg) ONE (06:51)
[2023-06-28] MEDS ORDERED: Rocuronium 50 mg VIAL 10 mg/ml 5 ml VIAL (50 mg) ONE (06:51)
[2023-06-28] MEDS ORDERED: Ondansetron 4 mg VIAL 2 MG/ML 2 ml VIAL ONE (07:26)
[2023-06-28] MEDS ORDERED: Phenylephrine 40 mcg/mL 10mL (400mcg) SYRINGE ONE (07:53)
[2023-06-28] MEDS ORDERED: Scopolamine 1 mg/72hr PATCH ONE (07:53)
[2023-06-28] MEDS ORDERED: Naloxone 0.4 mg VIAL 0.4 mg/ml 1 ml VIAL IV PRN (07:53)
[2023-06-28] MEDS ORDERED: Prochlorperazine 5 mg/ml 2 ml VIAL (10 mg) IV PRN (07:53)
[2023-06-28] MEDS ORDERED: HYDROmorphone 1 MG/1 ML SYRINGE IV PRN (07:53)
[2023-06-28] MEDS ORDERED: Dexamethasone IV 4 MG/ML VIAL 1 ml VIAL ONE (08:03)
[2023-06-28] MEDS ORDERED: Metoclopramide 5 MG/ML VIAL (10 mg) ONE (08:11)
[2023-06-28] MEDS ORDERED: Ondansetron 4 mg VIAL 2 MG/ML 2 ml VIAL IV PRN (09:47)
[2023-06-28] MEDS ORDERED: Calcium Carb (TUMS) 500 mg CHEW TAB PO PRN (09:47)
[2023-06-28] MEDS ORDERED: HYDROcodone/ACETAMIN 5/325 mg TAB PO PRN (09:47)
[2023-06-28] MEDS ORDERED: Morphine 2 MG/ML SYRINGE IV PRN (09:47)
[2023-06-28] MEDS ORDERED: Senna TAB 8.6 mg TAB PO PRN (09:47)
[2023-06-28] MEDS ORDERED: HYDROmorphone 1 MG/1 ML SYRINGE ONE (09:49)
[2023-06-28] MEDS ORDERED: Albuterol 2.5mg/3 ml (0.083%) NEB.SOLN INH PRN (09:50)
[2023-06-28] MEDS ORDERED: Albuterol HFA INHALER 8 gm MDI INH PRN (09:50)
[2023-06-28] MEDS: HYDROcodone/ACETAMIN 5/325 mg TAB PO PRN ×3 (11:37→20:07)
[2023-06-28] MEDS: Lactated Ringers 1000 ml BAG 1,000 ML IV SCH (11:39)
[2023-06-28] MEDS: Cholecalciferol (VIT D3) 1,000 unit TAB PO SCH (11:39)
[2023-06-29] MEDS: HYDROcodone/ACETAMIN 5/325 mg TAB PO PRN ×3 (00:19→18:31)
[2023-06-29] MEDS: Lactated Ringers 1000 ml BAG 1,000 ML IV SCH (00:50)
[2023-06-29 07:35] LABS: Calcium 8.7 mg/dL (8.6-10.3); Creatinine, Serum 0.62 mg/dL (0.51-0.95); Potassium 3.4 mmol/L (3.5-5.0); eGFR CKD-EPI 116.1 (>60)
[2023-06-29] MEDS: DULoxetine DR 60 mg CAP PO SCH (08:26)
[2023-06-29] MEDS ORDERED: Potassium Chlor 10 meq TAB PO SCH (09:00)
[2023-06-29] MEDS: Cholecalciferol (VIT D3) 1,000 unit TAB PO SCH (12:03)
[2023-06-29] MEDS ORDERED: Potassium Chlor 10 meq TAB PO ONE ×2 (18:00→21:00)
[2023-06-30] MEDS ORDERED: Morphine 2 MG/ML SYRINGE IV ONE (02:30)
[2023-06-30] MEDS: HYDROcodone/ACETAMIN 5/325 mg TAB PO PRN ×2 (04:17→09:24)
[2023-06-30 08:28] LABS: Calcium 8.5 mg/dL (8.6-10.3); Creatinine, Serum 0.69 mg/dL (0.51-0.95); Potassium 3.2 mmol/L (3.5-5.0); eGFR CKD-EPI 113.1 (>60)
[2023-06-30] MEDS: DULoxetine DR 60 mg CAP PO SCH (09:24)
[2023-06-30] MEDS ORDERED: Potassium Chlor 20 meq TAB.ER PO ONE (09:38)
[2023-06-30 10:09] VITALS: BP 115/77
== END 2023-06-30 12:30 | disposition home or self-care (01) ==
LOC: INTOOBSV 05:55 → OBSVTOIN 05:55 → AA 05:55 → SSU 09:47
PROVIDERS: ADMIT Neurological Surgery; ATTEND Neurological Surgery